=== PATIENT | female | born 1990 | race Caucasian/White ===

== ENCOUNTER → 2016-11-22 | Outpatient (CLI) | payer OTHER | END | disposition home or self-care (01) | LOC: LAB.O 07:19 | PROVIDERS: ATTEND Family Medicine | DX: E16.2 Hypoglycemia, unspecified (principal) ==

== ENCOUNTER → 2017-04-29 | Outpatient (CLI) | payer OTHER ==
--- NOTE | 2017-04-29 10:51 | RAD ---
EXAM DESCRIPTION: Foot,Right 3 Views CLINICAL HISTORY: 26 years, Female, PAIN IN RIGHT FOOT COMPARISON: None TECHNIQUE: AP, lateral, and oblique views of the right foot FINDINGS: There is no bone, joint, or soft tissue abnormality observed. There is no radiopaque foreign body. Normal mineralization is present without significant degenerative change or fracture or dislocation. IMPRESSION: Normal examination. Electronically signed by: Madhav Claudio MD 04/29/2017 10:49 AM CDT
== END | disposition home or self-care (01) ==
LOC: RAD 07:54
PROVIDERS: ATTEND Orthopaedic Surgery
DX: M79.671 Pain in right foot (principal)

== ENCOUNTER → 2019-12-10 | Outpatient (CLI) | payer OTHER | LOC: LAB.O 10:41 | PROVIDERS: ATTEND Family Medicine | DX: Z00.00 Encounter for general adult medical examination without abnormal findings (principal) ==